=== PATIENT | male | born 1970 | race Caucasian/White ===

== ENCOUNTER 2021-05-05 17:03 | Emergency (ER) | payer SELFPAY ==
--- NOTE | 2021-05-05 17:08 | NUR ---
Pt was not found in ER waiting room or outside ER.
--- NOTE | 2021-05-05 17:25 | NUR ---
Attempted to triage again, pt was not in ER waiting room or outside ER.
== END 2021-05-05 17:32 | disposition left against medical advice (07) ==
LOC: ER 17:06
DX: Z53.21 Procedure and treatment not carried out due to patient leaving prior to being seen by health care provider (principal)